=== PATIENT | female | born 1940 | race American Indian/Alaskan Native ===

== ENCOUNTER 2019-07-23 08:02 | Day surgery (SDC) | payer MEDICARE, OTHER ==
[~2019-07-23] VITALS: Ht 167.6 cm; Wt 78.1 kg
[~2019-07-23 08:02] MED LIST: AMIO200T61 PO; CINA30TA PO; CIPR-260 PO; DEXL30CA3 PO; FOLI1TAB16 PO; METO50TA7 PO; SEVE800T8 PO; TRAM50TA2 PO; VIT1TABL76 PO; [UNRECOGNIZED DRUG - OTHER]
[2019-07-23] MEDS ORDERED: normal saline 1000ml 1,000 ML IV PRN (08:40)
[2019-07-23] MEDS ORDERED: COU4T PO (08:46)
[2019-07-23] MEDS ORDERED: COU3T PO (08:46)
[2019-07-23 09:04] LABS: BASOPHILS # (AUTO) 0.1 X10'3 (0-0.2); BASOPHILS % (AUTO) 0.9 % (0-1); EOSINOPHILS # (AUTO) 0.1 X10'3 (0-0.9); EOSINOPHILS % (AUTO) 1.8 % (0-6); HEMATOCRIT 30.8 % (35.0-45.0); HEMOGLOBIN 10.8 g/dl (12.0-16.0); LYMPHOCYTES # (AUTO) 1.3 X10'3 (1.1-4.8); LYMPHOCYTES % (AUTO) 20.5 % (21-51); MEAN CORPUSCULAR HEMOGLOBIN 36.3 PG (27.0-31.0); MEAN CORPUSCULAR HGB CONC 35.1 g/dL (33.0-36.5); MEAN CORPUSCULAR VOLUME 103.4 FL (78-98); MEAN PLATELET VOLUME 7.1 FL (7.4-10.4); MONOCYTES # (AUTO) 0.6 X10'3 (0-0.9); MONOCYTES % (AUTO) 9.8 % (2-12); NEUTROPHILS # (AUTO) 4.1 X10'3 (1.8-7.7); PLATELET COUNT 182 X10'3 (140-440); RED BLOOD COUNT 2.98 X10'6 (4.20-5.60); WHITE BLOOD COUNT 6.1 X10'3 (4.5-11.0)
[2019-07-23 09:18] LABS: ALBUMIN 2.7 G/DL (3.4-5.0); ANION GAP 9 (8-16); BLOOD UREA NITROGEN 52 MG/DL (7-18); BUN/CREATININE RATIO 6.5 (6.6-38.0); CALCIUM 8.2 MG/DL (8.5-10.1); CHLORIDE 104 MMOL/L (99-107); CREATININE 8.01 MG/DL (0.40-0.90); GLUCOSE 110 MG/DL (70-104); POTASSIUM 4.6 MMOL/L (3.5-5.1); SODIUM 138 MMOL/L (135-145); eGFR 5 ML/MIN
[2019-07-23] MEDS ORDERED: DEXL30CA3 PO (09:25)
[2019-07-23] MEDS ORDERED: CINA30TA PO (09:25)
== END 2019-07-23 10:15 | disposition home or self-care (01) ==
LOC: SSTAY O 08:02
PROVIDERS: ATTEND Radiology Diagnostic Radiology
DX: E11.22 Type 2 diabetes mellitus with diabetic chronic kidney disease (principal); Z53.8 Procedure and treatment not carried out for other reasons; I12.0 Hypertensive chronic kidney disease with stage 5 chronic kidney disease or end stage renal disease; N18.6 End stage renal disease; I48.91 Unspecified atrial fibrillation; D64.9 Anemia, unspecified; Z98.41 Cataract extraction status, right eye; Z98.42 Cataract extraction status, left eye; Z85.3 Personal history of malignant neoplasm of breast; Z99.2 Dependence on renal dialysis; Z98.890 Other specified postprocedural states; Z90.49 Acquired absence of other specified parts of digestive tract; Z90.11 Acquired absence of right breast and nipple; Z87.891 Personal history of nicotine dependence; Z88.2 Allergy status to sulfonamides; Z88.5 Allergy status to narcotic agent; Z83.3 Family history of diabetes mellitus
CPT/HCPCS: 36415; 80048; 85025; 85610; J7030

== ENCOUNTER 2020-02-03 09:05 | Outpatient (CLI) | payer MEDICARE, OTHER ==
[~2020-02-03 09:05] MED LIST changes: -AMIO200T61 PO; -CIPR-260 PO; +COU3T PO; +COU4T PO; -TRAM50TA2 PO
== END 2020-02-03 23:59 | disposition home or self-care (01) ==
LOC: RAD 09:05
PROVIDERS: ATTEND Internal Medicine Critical Care Medicine
DX: N18.6 End stage renal disease (principal); R76.11 Nonspecific reaction to tuberculin skin test without active tuberculosis
CPT/HCPCS: 71046

== ENCOUNTER 2020-04-13 09:05 | Day surgery (SDC) | payer MEDICARE, OTHER ==
[2020-04-13] VITALS (7 sets, daily range): BP systolic 114–135; BP diastolic 68–75
[~2020-04-13] VITALS: Ht 167.6 cm; Wt 73.3 kg
[~2020-04-13 09:05] MED LIST changes: +CALC0.2511 PO; -CINA30TA PO; +CLOP75TA33 PO; -COU3T PO; -COU4T PO; -DEXL30CA3 PO; -FOLI1TAB16 PO; +HYDR-4353 PO; +LORA10TA7 PO; +LOSA100T57 PO; +METO25TA6 PO; -METO50TA7 PO; +PIRO20CA PO; +SENN-223 PO; -SEVE800T8 PO; -VIT1TABL76 PO; +WARF-65 PO; -[UNRECOGNIZED DRUG - OTHER]
== END 2020-04-13 11:40 | disposition home or self-care (01) ==
LOC: SSTAY O 09:05
PROVIDERS: ATTEND Radiology Diagnostic Radiology
DX: J90 Pleural effusion, not elsewhere classified (principal); Z95.1 Presence of aortocoronary bypass graft; I24.1 Dressler's syndrome; E11.22 Type 2 diabetes mellitus with diabetic chronic kidney disease; N18.6 End stage renal disease; I48.91 Unspecified atrial fibrillation
CPT/HCPCS: 32555; 36415; 71045; 85610; 87635

== ENCOUNTER 2020-04-21 08:57 | Day surgery (SDC) | payer MEDICARE, OTHER ==
[~2020-04-21] VITALS: Ht 167.6 cm; Wt 72.2 kg
[2020-04-21] MEDS ORDERED: normal saline 1000ml 1,000 ML IV PRN (09:25)
[2020-04-21] MEDS ORDERED: albumin 25% 100mL bottle x 1 IV PRN (09:25)
[2020-04-21 09:30] VITALS: BP 124/65
--- NOTE | 2020-04-21 09:58 | NUR ---
Called LISA Nugent re pt's negative PCR coronavirus result on 04/13/2020. OK to cancel today's order for PCR test.
[2020-04-21 10:50] VITALS: BP 115/72
[2020-04-21 11:00] VITALS: BP 122/56
[2020-04-21 11:06] VITALS: BP 136/59
[2020-04-21 11:15] VITALS: BP 113/67
== END 2020-04-21 11:40 | disposition home or self-care (01) ==
LOC: SSTAY O 08:57
PROVIDERS: ATTEND Radiology Vascular & Interventional Radiology
DX: J91.8 Pleural effusion in other conditions classified elsewhere (principal); I48.91 Unspecified atrial fibrillation; R06.02 Shortness of breath
CPT/HCPCS: 32555; 36415; 71045; 85610

== ENCOUNTER 2020-04-28 08:43 | Day surgery (SDC) | payer MEDICARE, OTHER ==
[~2020-04-28] VITALS: Ht 167.6 cm; Wt 72.5 kg
[2020-04-28 08:47] VITALS: BP 108/63
[2020-04-28 09:27] VITALS: BP 97/53
[2020-04-28 10:15] VITALS: BP 97/53
[2020-04-28 10:20] VITALS: BP 110/65
[2020-04-28 10:30] VITALS: BP 126/62
== END 2020-04-28 10:35 | disposition home or self-care (01) ==
LOC: SSTAY O 08:43
PROVIDERS: ATTEND Radiology Vascular & Interventional Radiology
DX: J90 Pleural effusion, not elsewhere classified (principal); I48.91 Unspecified atrial fibrillation; N18.6 End stage renal disease; Z99.2 Dependence on renal dialysis; Z90.710 Acquired absence of both cervix and uterus; Z90.49 Acquired absence of other specified parts of digestive tract; Z98.890 Other specified postprocedural states; Z72.89 Other problems related to lifestyle; Z88.8 Allergy status to other drugs, medicaments and biological substances; Z88.5 Allergy status to narcotic agent; Z79.01 Long term (current) use of anticoagulants; Z79.899 Other long term (current) drug therapy; Z83.3 Family history of diabetes mellitus; Z80.8 Family history of malignant neoplasm of other organs or systems
CPT/HCPCS: 32555; 36415; 71045; 85610

== ENCOUNTER 2020-05-05 08:58 | Day surgery (SDC) | payer MEDICARE, OTHER ==
[~2020-05-05] VITALS: Ht 167.6 cm; Wt 72.5 kg
[~2020-05-05 08:58] MED LIST changes: -CLOP75TA33 PO; -HYDR-4353 PO; -LORA10TA7 PO; -PIRO20CA PO; -SENN-223 PO
[2020-05-05 09:30] VITALS: BP 106/69
[2020-05-05 10:50] VITALS: BP 106/69
[2020-05-05 11:10] VITALS: BP 128/68
[2020-05-05 11:25] VITALS: BP 137/69
== END 2020-05-05 11:30 | disposition home or self-care (01) ==
LOC: SSTAY O 08:58
PROVIDERS: ATTEND Radiology Vascular & Interventional Radiology
DX: J91.8 Pleural effusion in other conditions classified elsewhere (principal); J90 Pleural effusion, not elsewhere classified; Z95.1 Presence of aortocoronary bypass graft; I48.91 Unspecified atrial fibrillation; R06.02 Shortness of breath; I25.10 Atherosclerotic heart disease of native coronary artery without angina pectoris; N18.6 End stage renal disease; Z99.2 Dependence on renal dialysis
CPT/HCPCS: 32555; 36415; 71045; 85610

== ENCOUNTER 2020-05-12 08:53 | Day surgery (SDC) | payer MEDICARE, OTHER ==
[~2020-05-12] VITALS: Ht 167.6 cm; Wt 72.5 kg
[2020-05-12] MEDS ORDERED: albumin 25% 100mL bottle x 1 IV PRN (09:15)
[2020-05-12 09:33] VITALS: BP 115/52
[2020-05-12 10:45] VITALS: BP 115/59
[2020-05-12 11:00] VITALS: BP 123/60
[2020-05-12 11:34] LABS: ALBUMIN,BODY FLUID 1.5 G/DL; TOTAL PROTEIN,BODY FLUID 3.1 G/DL
[2020-05-12 12:07] LABS: BFAPPEAR CLEAR; BFCOLOR YELLOW
[2020-05-12 12:08] LABS: BF RBC COUNT 345 /CU MM; BF WBC COUNT 630 /CU MM (0-1000); BFVOLUME 57 ML; LYMPHOCYTES,BODY FLUID 82 %; MONOCYTES,BODY FLUID 15 %; NEUTROPHILS,BODY FLUID 3 %; OTHER CELLS,BODY FLUID MACROPHAGES
== END 2020-05-12 11:10 | disposition home or self-care (01) ==
LOC: SSTAY O 08:53
PROVIDERS: ATTEND Radiology Diagnostic Radiology
DX: J90 Pleural effusion, not elsewhere classified (principal); Z20.828 Contact with and (suspected) exposure to other viral communicable diseases; Z88.8 Allergy status to other drugs, medicaments and biological substances; Z88.5 Allergy status to narcotic agent; Z88.1 Allergy status to other antibiotic agents; Z79.899 Other long term (current) drug therapy; Z79.01 Long term (current) use of anticoagulants; Z83.3 Family history of diabetes mellitus
CPT/HCPCS: 32555; 36415; 71045; 82042; 84157; 85610; 87070; 87635; 89051

== ENCOUNTER 2020-05-19 08:47 | Day surgery (SDC) | payer MEDICARE, OTHER ==
[~2020-05-19] VITALS: Ht 167.6 cm; Wt 72.2 kg
[2020-05-19] MEDS ORDERED: albumin 25% 100mL bottle x 1 IV PRN (09:05)
[2020-05-19 09:06] VITALS: BP 119/57
[2020-05-19 10:10] VITALS: BP 119/57
[2020-05-19 10:15] VITALS: BP 119/69
== END 2020-05-19 10:30 | disposition home or self-care (01) ==
LOC: SSTAY O 08:47
PROVIDERS: ATTEND Radiology Vascular & Interventional Radiology
DX: J90 Pleural effusion, not elsewhere classified (principal); I48.91 Unspecified atrial fibrillation; N18.6 End stage renal disease; Z99.2 Dependence on renal dialysis; Z90.49 Acquired absence of other specified parts of digestive tract; Z98.890 Other specified postprocedural states; Z90.710 Acquired absence of both cervix and uterus; Z72.89 Other problems related to lifestyle; Z88.8 Allergy status to other drugs, medicaments and biological substances; Z88.5 Allergy status to narcotic agent; Z95.1 Presence of aortocoronary bypass graft; Z88.1 Allergy status to other antibiotic agents; Z79.899 Other long term (current) drug therapy; Z79.01 Long term (current) use of anticoagulants; Z83.3 Family history of diabetes mellitus; Z80.9 Family history of malignant neoplasm, unspecified
CPT/HCPCS: 32555; 36415; 71045; 85610

== ENCOUNTER 2020-05-26 08:59 | Day surgery (SDC) | payer MEDICARE, OTHER ==
[~2020-05-26] VITALS: Ht 167.6 cm; Wt 72.5 kg
[2020-05-26 09:39] VITALS: BP 115/70
[2020-05-26 10:28] VITALS: BP 115/70
[2020-05-26 10:32] VITALS: BP 135/81
== END 2020-05-26 10:40 | disposition home or self-care (01) ==
LOC: SSTAY O 08:59
PROVIDERS: ATTEND Radiology Diagnostic Radiology
DX: J91.8 Pleural effusion in other conditions classified elsewhere (principal); E11.22 Type 2 diabetes mellitus with diabetic chronic kidney disease; N18.9 Chronic kidney disease, unspecified; R06.02 Shortness of breath; I50.9 Heart failure, unspecified
CPT/HCPCS: 32555; 36415; 71045; 85610

== ENCOUNTER 2020-06-04 09:06 | Day surgery (SDC) | payer MEDICARE, OTHER ==
[~2020-06-04] VITALS: Ht 167.6 cm; Wt 73.4 kg
[2020-06-04 09:29] VITALS: BP 113/72
[2020-06-04] MEDS ORDERED: albumin 25% 100mL bottle x 1 IV PRN (09:35)
[2020-06-04] MEDS ORDERED: SEVE800T8 PO (09:46)
[2020-06-04 10:00] VITALS: BP 126/74
[2020-06-04 10:10] VITALS: BP 130/74
[2020-06-04 10:25] VITALS: BP 124/59
[2020-06-04 10:55] VITALS: BP 115/54
[2020-06-04 11:25] VITALS: BP 135/70
== END 2020-06-04 12:05 | disposition home or self-care (01) ==
LOC: SSTAY O 09:06
PROVIDERS: ATTEND Radiology Diagnostic Radiology
DX: J90 Pleural effusion, not elsewhere classified (principal)
CPT/HCPCS: 32555; 36415; 71045; 85610

== ENCOUNTER 2020-06-11 09:15 | Day surgery (SDC) | payer MEDICARE, OTHER ==
[~2020-06-11] VITALS: Ht 167.6 cm; Wt 71.4 kg
[~2020-06-11 09:15] MED LIST changes: -CALC0.2511 PO; +SEVE800T8 PO
[2020-06-11] MEDS ORDERED: albumin 25% 100mL bottle x 1 IV PRN (09:55)
[2020-06-11 09:56] VITALS: BP 129/87
[2020-06-11 10:51] VITALS: BP 129/87
[2020-06-11 11:00] VITALS: BP 106/69
[2020-06-11 11:15] VITALS: BP 121/83
[2020-06-11 11:30] VITALS: BP 107/72
== END 2020-06-11 11:05 | disposition home or self-care (01) ==
LOC: SSTAY O 09:15
PROVIDERS: ATTEND Radiology Vascular & Interventional Radiology
DX: J90 Pleural effusion, not elsewhere classified (principal); Z88.5 Allergy status to narcotic agent; Z88.8 Allergy status to other drugs, medicaments and biological substances; I24.1 Dressler's syndrome; N18.6 End stage renal disease; I48.91 Unspecified atrial fibrillation; Z79.01 Long term (current) use of anticoagulants; Z95.1 Presence of aortocoronary bypass graft; Z98.890 Other specified postprocedural states; Z90.710 Acquired absence of both cervix and uterus; Z90.49 Acquired absence of other specified parts of digestive tract; Z99.2 Dependence on renal dialysis; Z80.8 Family history of malignant neoplasm of other organs or systems; Z83.3 Family history of diabetes mellitus
CPT/HCPCS: 32555; 36415; 71045; 85610

== ENCOUNTER 2020-06-18 07:56 | Day surgery (SDC) | payer MEDICARE, OTHER ==
[~2020-06-18] VITALS: Ht 167.6 cm; Wt 70.7 kg
[2020-06-18 08:15] VITALS: BP_SYST 100; BP_SYST 103; BP_DIAS 47; BP_DIAS 55
--- NOTE | 2020-06-18 08:27 | NUR ---
Order received from LISA Nugent to perform non-rapid covid test.
[2020-06-18] MEDS ORDERED: albumin 25% 100mL bottle x 1 IV PRN (08:40)
[2020-06-18 09:35] VITALS: BP 127/58
[2020-06-18 09:45] VITALS: BP 110/54
[2020-06-18 10:00] VITALS: BP 101/42
[2020-06-18 10:15] VITALS: BP 95/50
--- NOTE | 2020-06-18 10:19 | NUR ---
CXR reviewed by LISA Nugent. Provider stated pt ok to go, no pneumothorax noted.
== END 2020-06-18 10:20 | disposition home or self-care (01) ==
LOC: SSTAY O 07:56
PROVIDERS: ATTEND Radiology Diagnostic Radiology
DX: J90 Pleural effusion, not elsewhere classified (principal); Z20.828 Contact with and (suspected) exposure to other viral communicable diseases; I48.91 Unspecified atrial fibrillation; N18.6 End stage renal disease; Z99.2 Dependence on renal dialysis; Z90.49 Acquired absence of other specified parts of digestive tract; Z90.710 Acquired absence of both cervix and uterus; Z98.890 Other specified postprocedural states; Z72.89 Other problems related to lifestyle; Z88.8 Allergy status to other drugs, medicaments and biological substances; Z88.5 Allergy status to narcotic agent; Z88.1 Allergy status to other antibiotic agents; Z83.3 Family history of diabetes mellitus; Z80.8 Family history of malignant neoplasm of other organs or systems
CPT/HCPCS: 32555; 36415; 71045; 85610; 87635

== ENCOUNTER 2020-06-25 08:03 | Day surgery (SDC) | payer MEDICARE, OTHER ==
[~2020-06-25] VITALS: Ht 167.6 cm; Wt 70.9 kg
[2020-06-25 08:30] VITALS: BP 103/59
[2020-06-25] MEDS ORDERED: albumin 25% 100mL bottle x 1 IV PRN (08:30)
[2020-06-25 09:35] VITALS: BP 109/78
[2020-06-25 09:45] VITALS: BP 106/45
[2020-06-25 10:00] VITALS: BP 95/66
[2020-06-25 10:15] VITALS: BP 99/54
[2020-06-25 10:30] VITALS: BP 108/66
== END 2020-06-25 10:40 | disposition home or self-care (01) ==
LOC: SSTAY O 08:03
PROVIDERS: ATTEND Radiology Diagnostic Radiology
DX: J90 Pleural effusion, not elsewhere classified (principal); I48.91 Unspecified atrial fibrillation; N18.6 End stage renal disease; Z79.01 Long term (current) use of anticoagulants; Z95.1 Presence of aortocoronary bypass graft; Z99.2 Dependence on renal dialysis; Z90.49 Acquired absence of other specified parts of digestive tract; Z90.710 Acquired absence of both cervix and uterus; Z88.1 Allergy status to other antibiotic agents; Z88.8 Allergy status to other drugs, medicaments and biological substances; Z88.5 Allergy status to narcotic agent; Z79.899 Other long term (current) drug therapy; Z72.89 Other problems related to lifestyle; Z83.3 Family history of diabetes mellitus; Z80.8 Family history of malignant neoplasm of other organs or systems
CPT/HCPCS: 32555; 36415; 71045; 85610

== ENCOUNTER 2020-07-02 08:08 | Day surgery (SDC) | payer MEDICARE, OTHER ==
[~2020-07-02] VITALS: Ht 167.6 cm; Wt 69.9 kg
[2020-07-02 08:30] VITALS: BP 104/52
[2020-07-02] MEDS ORDERED: albumin 25% 100mL bottle x 1 IV PRN (08:35)
[2020-07-02 09:08] VITALS: BP 104/52
[2020-07-02 09:45] VITALS: BP 111/66
[2020-07-02 10:00] VITALS: BP 106/63
[2020-07-02 10:15] VITALS: BP 93/52
== END 2020-07-02 10:40 | disposition home or self-care (01) ==
LOC: SSTAY O 08:08
PROVIDERS: ATTEND Radiology Vascular & Interventional Radiology
DX: J90 Pleural effusion, not elsewhere classified (principal); I48.91 Unspecified atrial fibrillation; N18.6 End stage renal disease; Z99.2 Dependence on renal dialysis; Z95.1 Presence of aortocoronary bypass graft; Z79.01 Long term (current) use of anticoagulants; Z98.890 Other specified postprocedural states; Z90.710 Acquired absence of both cervix and uterus; Z90.49 Acquired absence of other specified parts of digestive tract; Z88.8 Allergy status to other drugs, medicaments and biological substances; Z88.5 Allergy status to narcotic agent; Z88.1 Allergy status to other antibiotic agents; Z79.899 Other long term (current) drug therapy; Z72.89 Other problems related to lifestyle; Z83.3 Family history of diabetes mellitus; Z80.9 Family history of malignant neoplasm, unspecified
CPT/HCPCS: 32555; 36415; 71045; 85610

== ENCOUNTER 2020-07-08 08:50 | Day surgery (SDC) | payer MEDICARE, OTHER ==
[~2020-07-08] VITALS: Ht 167.6 cm; Wt 72.0 kg
[2020-07-08 09:00] VITALS: BP 115/33
[2020-07-08 09:50] VITALS: BP 115/33
[2020-07-08 10:00] VITALS: BP 116/42
[2020-07-08 10:15] VITALS: BP 109/62
[2020-07-08 11:00] VITALS: BP 110/57
== END 2020-07-08 11:00 | disposition home or self-care (01) ==
LOC: SSTAY O 08:50
PROVIDERS: ATTEND Radiology Diagnostic Radiology
DX: J90 Pleural effusion, not elsewhere classified (principal); I48.91 Unspecified atrial fibrillation; N18.6 End stage renal disease; Z90.49 Acquired absence of other specified parts of digestive tract; Z95.1 Presence of aortocoronary bypass graft; Z98.890 Other specified postprocedural states; Z90.710 Acquired absence of both cervix and uterus; Z72.89 Other problems related to lifestyle; Z88.5 Allergy status to narcotic agent; Z88.8 Allergy status to other drugs, medicaments and biological substances; Z79.899 Other long term (current) drug therapy; Z79.01 Long term (current) use of anticoagulants; Z83.3 Family history of diabetes mellitus
CPT/HCPCS: 32555; 36415; 71045; 85610

== ENCOUNTER 2020-07-16 08:48 | Day surgery (SDC) | payer MEDICARE, OTHER ==
[~2020-07-16] VITALS: Ht 165.1 cm; Wt 70.6 kg
[2020-07-16] MEDS ORDERED: albumin 25% 100mL bottle x 1 IV PRN (09:15)
[2020-07-16 10:00] VITALS: BP 95/60
[2020-07-16 10:30] VITALS: BP 95/60
[2020-07-16 10:35] VITALS: BP 95/60
[2020-07-16 10:40] VITALS: BP 95/40
[2020-07-16 10:55] VITALS: BP 96/43
[2020-07-16] MEDS ORDERED: WARF3TAB56 PO (15:44)
[2020-07-16] MEDS ORDERED: CINA30TA PO (15:45)
== END 2020-07-16 11:05 | disposition home or self-care (01) ==
LOC: SSTAY O 08:48
PROVIDERS: ATTEND Radiology Vascular & Interventional Radiology
DX: J90 Pleural effusion, not elsewhere classified (principal); I48.91 Unspecified atrial fibrillation; N18.6 End stage renal disease; Z99.2 Dependence on renal dialysis; Z79.01 Long term (current) use of anticoagulants; Z90.49 Acquired absence of other specified parts of digestive tract; Z98.890 Other specified postprocedural states; Z90.710 Acquired absence of both cervix and uterus; Z72.89 Other problems related to lifestyle; Z88.8 Allergy status to other drugs, medicaments and biological substances; Z88.5 Allergy status to narcotic agent; Z79.899 Other long term (current) drug therapy; Z83.3 Family history of diabetes mellitus; Z80.8 Family history of malignant neoplasm of other organs or systems
CPT/HCPCS: 32555; 36415; 71045; 85610

== ENCOUNTER 2020-08-13 10:48 | Day surgery (SDC) | payer MEDICARE, OTHER ==
[2020-08-13] VITALS (7 sets, daily range): BP systolic 124–141; BP diastolic 59–70
[~2020-08-13] VITALS: Ht 167.6 cm; Wt 72.1 kg
[~2020-08-13 10:48] MED LIST changes: +CINA30TA PO; +CLOP75TA15 PO; +DOCU100C40 PO; -LOSA100T57 PO; -METO25TA6 PO; +MIDO5TAB4 PO; +WARF3TAB56 PO; +metoprolol tartrate tablet PO
[2020-08-13] MEDS ORDERED: normal saline 1000ml 1,000 ML IV SCH (11:20)
[2020-08-13] MEDS ORDERED: CLOP75TA15 PO (12:08)
[2020-08-13] MEDS ORDERED: DOCU-148 PO (12:09)
[2020-08-13] MEDS ORDERED: MIDO2.5T14 PO (12:11)
[2020-08-13] MEDS ORDERED: METOPROLOL TARTRATE (12:16)
[2020-08-13 12:21] LABS: ALBUMIN 2.9 G/DL (3.4-5.0); ANION GAP 8 (8-16); BLOOD UREA NITROGEN 17 MG/DL (7-18); BUN/CREATININE RATIO 3.9 (6.6-38.0); CALCIUM 8.5 MG/DL (8.5-10.1); CHLORIDE 104 MMOL/L (99-107); CREATININE 4.35 MG/DL (0.40-0.90); GLUCOSE 224 MG/DL (70-104); POTASSIUM 4.2 MMOL/L (3.5-5.1); SODIUM 144 MMOL/L (135-145); TOTAL CARBON DIOXIDE 32.5 MMOL/L (24-32); eGFR 10 ML/MIN
[2020-08-13 12:27] LABS: BASOPHILS # (AUTO) 0.1 X10'3 (0-0.2); BASOPHILS % (AUTO) 1.2 % (0-1); EOSINOPHILS % (AUTO) 0.8 % (0-6); HEMATOCRIT 31.4 % (35.0-45.0); HEMOGLOBIN 10.4 g/dl (12.0-16.0); LYMPHOCYTES # (AUTO) 0.9 X10'3 (1.1-4.8); LYMPHOCYTES % (AUTO) 15.4 % (21-51); MEAN CORPUSCULAR HEMOGLOBIN 34.2 PG (27.0-31.0); MEAN CORPUSCULAR HGB CONC 33.1 g/dL (33.0-36.5); MEAN CORPUSCULAR VOLUME 103.5 FL (78-98); MEAN PLATELET VOLUME 7.7 FL (7.4-10.4); MONOCYTES # (AUTO) 0.7 X10'3 (0-0.9); MONOCYTES % (AUTO) 11.5 % (2-12); NEUTROPHILS # (AUTO) 4.1 X10'3 (1.8-7.7); NEUTROPHILS % (AUTO) 71.1 % (42-75); PLATELET COUNT 205 X10'3 (140-440); RED BLOOD COUNT 3.04 X10'6 (4.20-5.60); RED CELL DISTRIBUTION WIDTH 15.7 % (11.5-14.5); WHITE BLOOD COUNT 5.8 X10'3 (4.5-11.0)
[2020-08-13] MEDS ORDERED: midazolam 2 mg/2 ml injection ONE (12:45)
[2020-08-13] MEDS ORDERED: LIDOcaine 1%/PF 5ML 10 MG/ML VIAL ONE (12:45)
[2020-08-13] MEDS ORDERED: fentaNYL/PF 50MCG/1 ML 2ML syringe ONE ×2 (12:46→13:56)
[2020-08-13] MEDS ORDERED: heparin 1,000 UNITS/NS 500ml 500 ML ONE (12:46)
[2020-08-13] MEDS ORDERED: iohexol 300mg/ml 100ml inj. ONE (12:46)
[2020-08-13] MEDS ORDERED: diphenhydrAMINE 50 mg/ml inj ONE (13:34)
== END 2020-08-13 16:00 | disposition home or self-care (01) ==
LOC: SSTAY O 10:48
PROVIDERS: ATTEND Radiology Diagnostic Radiology
DX: T82.858A Stenosis of other vascular prosthetic devices, implants and grafts, initial encounter (principal); I25.10 Atherosclerotic heart disease of native coronary artery without angina pectoris; E11.22 Type 2 diabetes mellitus with diabetic chronic kidney disease; I12.9 Hypertensive chronic kidney disease with stage 1 through stage 4 chronic kidney disease, or unspecified chronic kidney disease; N18.9 Chronic kidney disease, unspecified; I48.20 Chronic atrial fibrillation, unspecified; E21.3 Hyperparathyroidism, unspecified; Z79.01 Long term (current) use of anticoagulants; Z88.5 Allergy status to narcotic agent; Z88.1 Allergy status to other antibiotic agents; Z88.8 Allergy status to other drugs, medicaments and biological substances; Z79.899 Other long term (current) drug therapy; Z20.828 Contact with and (suspected) exposure to other viral communicable diseases; Y83.2 Surgical operation with anastomosis, bypass or graft as the cause of abnormal reaction of the patient, or of later complication, without mention of misadventure at the time of the procedure; Y92.89 Other specified places as the place of occurrence of the external cause
CPT/HCPCS: 36415; 36902; 80048; 85025; 85610; 87635; 99152; 99153; C1725; C1769; C1894; C9803; J1200; J1644; J2250; J3010; J7030; Q9967

== ENCOUNTER 2020-08-16 11:13 | Emergency (ER) | payer MEDICARE, OTHER ==
[~2020-08-16] VITALS: Ht 167.6 cm; Wt 71.4 kg
[~2020-08-16 11:13] MED LIST changes: +DOCU-148 PO; +METOPROLOL TARTRATE; +MIDO2.5T14 PO
[2020-08-16 12:22] LABS: BASOPHILS # (AUTO) 0.1 X10'3 (0-0.2); EOSINOPHILS % (AUTO) 0.9 % (0-6); HEMATOCRIT 29.8 % (35.0-45.0); HEMOGLOBIN 9.9 g/dl (12.0-16.0); LYMPHOCYTES # (AUTO) 0.6 X10'3 (1.1-4.8); LYMPHOCYTES % (AUTO) 10.3 % (21-51); MEAN CORPUSCULAR HEMOGLOBIN 34.4 PG (27.0-31.0); MEAN CORPUSCULAR HGB CONC 33.2 g/dL (33.0-36.5); MEAN CORPUSCULAR VOLUME 103.7 FL (78-98); MEAN PLATELET VOLUME 7.9 FL (7.4-10.4); MONOCYTES # (AUTO) 0.5 X10'3 (0-0.9); MONOCYTES % (AUTO) 8.1 % (2-12); NEUTROPHILS # (AUTO) 4.6 X10'3 (1.8-7.7); NEUTROPHILS % (AUTO) 79.7 % (42-75); PLATELET COUNT 185 X10'3 (140-440); RED BLOOD COUNT 2.88 X10'6 (4.20-5.60); RED CELL DISTRIBUTION WIDTH 15.2 % (11.5-14.5); WHITE BLOOD COUNT 5.7 X10'3 (4.5-11.0)
[2020-08-16 12:34] LABS: ALANINE AMINOTRANSFERASE 14 U/L (12-78); ALBUMIN 2.7 G/DL (3.4-5.0); ALBUMIN/GLOBULIN RATIO 0.7 (1.1-1.5); ALKALINE PHOSPHATASE 191 IU/L (46-116); ANION GAP 5 (8-16); ASPARTATE AMINO TRANSFERASE 12 U/L (10-37); BILIRUBIN,TOTAL 0.7 MG/DL (0.1-1.0); BLOOD UREA NITROGEN 40 MG/DL (7-18); BUN/CREATININE RATIO 7.9 (6.6-38.0); CALCIUM 8.4 MG/DL (8.5-10.1); CHLORIDE 101 MMOL/L (99-107); CREATININE 5.04 MG/DL (0.40-0.90); GLUCOSE 289 MG/DL (70-104); POTASSIUM 3.9 MMOL/L (3.5-5.1); SODIUM 137 MMOL/L (135-145); TOTAL CARBON DIOXIDE 31.3 MMOL/L (24-32); TOTAL PROTEIN 6.7 G/DL (6.4-8.2); eGFR 8 ML/MIN
--- NOTE | 2020-08-16 15:49 | NUR ---
DURING THORACENTESIS PAIN SHOT UP LEFT ARM AND AT THAT POINT LISA PADILLA DISCONTINUE THORACENTESIS. 800CC FLUID REMOVED. PT STATES, THIS PAIN HAS HAPPENED BEFORE WHEN TWYLA HAD A THORACENTESIS
[2020-08-16 16:39] VITALS: BP 138/58
--- NOTE | 2020-08-16 16:40 | NUR ---
PT STATES, " I FEEL GOOD, NO SOB"
== END 2020-08-16 16:55 | disposition home or self-care (01) ==
LOC: ER 11:15
DX: I48.91 Unspecified atrial fibrillation (principal); J90 Pleural effusion, not elsewhere classified; R06.02 Shortness of breath; N18.6 End stage renal disease; I11.0 Hypertensive heart disease with heart failure; I50.9 Heart failure, unspecified; E11.9 Type 2 diabetes mellitus without complications; Z85.3 Personal history of malignant neoplasm of breast; Z90.49 Acquired absence of other specified parts of digestive tract; Z90.710 Acquired absence of both cervix and uterus; Z98.890 Other specified postprocedural states; Z88.1 Allergy status to other antibiotic agents; Z88.5 Allergy status to narcotic agent; Z88.8 Allergy status to other drugs, medicaments and biological substances; Z79.899 Other long term (current) drug therapy
CPT/HCPCS: 32555; 36415; 71045; 80053; 83880; 84484; 85025; 93005; 99285

== ENCOUNTER 2020-08-22 06:31 | Emergency (ER) | payer MEDICARE, OTHER ==
[~2020-08-22] VITALS: Ht 167.6 cm; Wt 72.7 kg
[2020-08-22 07:49] LABS: BASOPHILS # (AUTO) 0.1 X10'3 (0-0.2); BASOPHILS % (AUTO) 1.2 % (0-1); EOSINOPHILS # (AUTO) 0.1 X10'3 (0-0.9); EOSINOPHILS % (AUTO) 1.7 % (0-6); HEMATOCRIT 30.5 % (35.0-45.0); HEMOGLOBIN 10.3 g/dl (12.0-16.0); LYMPHOCYTES # (AUTO) 0.9 X10'3 (1.1-4.8); LYMPHOCYTES % (AUTO) 18.1 % (21-51); MEAN CORPUSCULAR HEMOGLOBIN 35.4 PG (27.0-31.0); MEAN CORPUSCULAR HGB CONC 33.8 g/dL (33.0-36.5); MEAN CORPUSCULAR VOLUME 104.7 FL (78-98); MEAN PLATELET VOLUME 7.9 FL (7.4-10.4); MONOCYTES # (AUTO) 0.6 X10'3 (0-0.9); MONOCYTES % (AUTO) 12.4 % (2-12); NEUTROPHILS # (AUTO) 3.2 X10'3 (1.8-7.7); NEUTROPHILS % (AUTO) 66.6 % (42-75); PLATELET COUNT 248 X10'3 (140-440); RED BLOOD COUNT 2.91 X10'6 (4.20-5.60); RED CELL DISTRIBUTION WIDTH 15.4 % (11.5-14.5); WHITE BLOOD COUNT 4.8 X10'3 (4.5-11.0)
[2020-08-22 07:59] LABS: ALANINE AMINOTRANSFERASE 13 U/L (12-78); ALBUMIN 2.8 G/DL (3.4-5.0); ALBUMIN/GLOBULIN RATIO 0.7 (1.1-1.5); ALKALINE PHOSPHATASE 178 IU/L (46-116); ANION GAP 10 (8-16); ASPARTATE AMINO TRANSFERASE 12 U/L (10-37); BILIRUBIN,TOTAL 0.6 MG/DL (0.1-1.0); BLOOD UREA NITROGEN 29 MG/DL (7-18); BUN/CREATININE RATIO 4.9 (6.6-38.0); CALCIUM 8.4 MG/DL (8.5-10.1); CHLORIDE 102 MMOL/L (99-107); CREATININE 5.94 MG/DL (0.40-0.90); GLUCOSE 194 MG/DL (70-104); POTASSIUM 3.8 MMOL/L (3.5-5.1); SODIUM 142 MMOL/L (135-145); TOTAL CARBON DIOXIDE 29.8 MMOL/L (24-32); TOTAL PROTEIN 6.9 G/DL (6.4-8.2); eGFR 7 ML/MIN
--- NOTE | 2020-08-22 09:30 | NUR ---
Pt tolerated thoracentisis well with 800ml drained. [facility] aware.
--- NOTE | 2020-08-22 09:39 | NUR ---
pER CASE MANAGEMENT, "tHIS IS NOTHING WE CAN DO" TO DECREASE ER USAGE. EDMD MARISELA INFORMED.
[2020-08-22 10:07] VITALS: BP 129/64
== END 2020-08-22 10:59 | disposition home or self-care (01) ==
LOC: ER 06:31
DX: J90 Pleural effusion, not elsewhere classified (principal); I48.91 Unspecified atrial fibrillation; I11.0 Hypertensive heart disease with heart failure; I50.9 Heart failure, unspecified; N18.9 Chronic kidney disease, unspecified; I12.9 Hypertensive chronic kidney disease with stage 1 through stage 4 chronic kidney disease, or unspecified chronic kidney disease; E11.22 Type 2 diabetes mellitus with diabetic chronic kidney disease; Z85.3 Personal history of malignant neoplasm of breast; Z98.890 Other specified postprocedural states; Z90.49 Acquired absence of other specified parts of digestive tract; Z90.710 Acquired absence of both cervix and uterus; Z99.2 Dependence on renal dialysis; Z88.1 Allergy status to other antibiotic agents; Z88.6 Allergy status to analgesic agent; Z88.8 Allergy status to other drugs, medicaments and biological substances; Z70.1 Counseling related to patient's sexual behavior and orientation; Z79.899 Other long term (current) drug therapy
CPT/HCPCS: 32555; 36415; 71045; 80053; 83880; 85025; 85610; 93005; 99285

== ENCOUNTER 2020-08-27 08:55 | Day surgery (SDC) | payer MEDICARE, OTHER ==
[~2020-08-27] VITALS: Ht 167.6 cm; Wt 71.4 kg
[2020-08-27 09:30] VITALS: BP 117/63
[2020-08-27] MEDS ORDERED: CLOP75TA15 PO (09:30)
[2020-08-27] MEDS ORDERED: METO25PO2 PO (09:36)
[2020-08-27] MEDS ORDERED: METO25TA6 PO (09:38)
[2020-08-27] MEDS ORDERED: albumin 25% 100mL bottle x 1 IV PRN (09:40)
[2020-08-27 10:29] VITALS: BP 109/63
[2020-08-27 10:35] VITALS: BP 107/53
[2020-08-27 10:45] VITALS: BP 103/56
[2020-08-27 11:00] VITALS: BP 107/53
[2020-08-27 11:15] VITALS: BP 116/63
== END 2020-08-27 11:35 | disposition home or self-care (01) ==
LOC: SSTAY O 08:55
PROVIDERS: ATTEND Radiology Diagnostic Radiology
DX: J90 Pleural effusion, not elsewhere classified (principal); I48.91 Unspecified atrial fibrillation; I24.1 Dressler's syndrome; N18.6 End stage renal disease; Z79.01 Long term (current) use of anticoagulants; Z95.1 Presence of aortocoronary bypass graft; Z99.2 Dependence on renal dialysis; Z98.890 Other specified postprocedural states; Z90.49 Acquired absence of other specified parts of digestive tract; Z90.710 Acquired absence of both cervix and uterus; Z72.89 Other problems related to lifestyle; Z88.5 Allergy status to narcotic agent; Z88.8 Allergy status to other drugs, medicaments and biological substances; Z79.899 Other long term (current) drug therapy; Z83.3 Family history of diabetes mellitus; Z80.8 Family history of malignant neoplasm of other organs or systems
CPT/HCPCS: 32555; 36415; 71045; 85610

== ENCOUNTER 2020-09-02 19:02 | Emergency (ER) | payer MEDICARE, OTHER ==
[~2020-09-02] VITALS: Ht 167.6 cm; Wt 70.9 kg
[~2020-09-02 19:02] MED LIST changes: -DOCU100C40 PO; +METO25TA6 PO; -METOPROLOL TARTRATE; -MIDO5TAB4 PO; -metoprolol tartrate tablet PO
[2020-09-02 19:41] LABS: BASOPHILS # (AUTO) 0.1 X10'3 (0-0.2); BASOPHILS % (AUTO) 1.3 % (0-1); EOSINOPHILS % (AUTO) 0.4 % (0-6); HEMATOCRIT 31.3 % (35.0-45.0); HEMOGLOBIN 10.4 g/dl (12.0-16.0); LYMPHOCYTES # (AUTO) 0.9 X10'3 (1.1-4.8); LYMPHOCYTES % (AUTO) 10.7 % (21-51); MEAN CORPUSCULAR HEMOGLOBIN 34.4 PG (27.0-31.0); MEAN CORPUSCULAR HGB CONC 33.1 g/dL (33.0-36.5); MEAN PLATELET VOLUME 7.9 FL (7.4-10.4); MONOCYTES # (AUTO) 0.9 X10'3 (0-0.9); MONOCYTES % (AUTO) 10.2 % (2-12); NEUTROPHILS # (AUTO) 6.4 X10'3 (1.8-7.7); NEUTROPHILS % (AUTO) 77.4 % (42-75); PLATELET COUNT 251 X10'3 (140-440); RED BLOOD COUNT 3.01 X10'6 (4.20-5.60); WHITE BLOOD COUNT 8.3 X10'3 (4.5-11.0)
--- NOTE | 2020-09-02 19:42 | NUR ---
MD MEDINA BEDSIDE.
[2020-09-02 19:54] LABS: ALANINE AMINOTRANSFERASE 13 U/L (12-78); ALBUMIN 2.5 G/DL (3.4-5.0); ALBUMIN/GLOBULIN RATIO 0.6 (1.1-1.5); ALKALINE PHOSPHATASE 130 IU/L (46-116); ANION GAP 6 (8-16); ASPARTATE AMINO TRANSFERASE 20 U/L (10-37); BILIRUBIN,TOTAL 0.6 MG/DL (0.1-1.0); BLOOD UREA NITROGEN 15 MG/DL (7-18); BUN/CREATININE RATIO 4.9 (6.6-38.0); CALCIUM 8.6 MG/DL (8.5-10.1); CHLORIDE 103 MMOL/L (99-107); CREATININE 3.06 MG/DL (0.40-0.90); GLUCOSE 210 MG/DL (70-104); SODIUM 141 MMOL/L (135-145); TOTAL CARBON DIOXIDE 32.2 MMOL/L (24-32); TOTAL PROTEIN 6.7 G/DL (6.4-8.2); eGFR 15 ML/MIN
[2020-09-02 20:01] LABS: POTASSIUM 4.4 MMOL/L (3.5-5.1)
[2020-09-02 20:44] VITALS: BP 104/56
== END 2020-09-02 20:30 | disposition home or self-care (01) ==
LOC: ER 19:03
DX: J90 Pleural effusion, not elsewhere classified (principal); I48.91 Unspecified atrial fibrillation; I13.0 Hypertensive heart and chronic kidney disease with heart failure and stage 1 through stage 4 chronic kidney disease, or unspecified chronic kidney disease; I50.9 Heart failure, unspecified; N18.6 End stage renal disease; E11.22 Type 2 diabetes mellitus with diabetic chronic kidney disease; Z85.3 Personal history of malignant neoplasm of breast; Z90.710 Acquired absence of both cervix and uterus; Z79.01 Long term (current) use of anticoagulants; Z99.2 Dependence on renal dialysis; Z88.1 Allergy status to other antibiotic agents; Z88.6 Allergy status to analgesic agent; Z88.8 Allergy status to other drugs, medicaments and biological substances; Z79.899 Other long term (current) drug therapy
CPT/HCPCS: 36415; 71045; 80053; 83880; 84484; 85025; 85610; 93005; 99285

== ENCOUNTER 2020-09-03 08:55 | Day surgery (SDC) | payer MEDICARE, OTHER ==
[~2020-09-03] VITALS: Ht 167.6 cm; Wt 72.2 kg
[2020-09-03] MEDS ORDERED: albumin 25% 100mL bottle x 1 IV PRN (09:20)
[2020-09-03 09:45] VITALS: BP 96/68
[2020-09-03 10:15] VITALS: BP 124/68
--- NOTE | 2020-09-03 11:05 | NUR ---
Called Dr. Peña to read CXR. stated pt was ok for discharge.
[2020-09-03 11:10] VITALS: BP 106/56
== END 2020-09-03 11:10 | disposition home or self-care (01) ==
LOC: SSTAY O 08:55
PROVIDERS: ATTEND Radiology Vascular & Interventional Radiology
DX: J90 Pleural effusion, not elsewhere classified (principal); I48.91 Unspecified atrial fibrillation; N18.6 End stage renal disease; Z99.2 Dependence on renal dialysis; Z90.49 Acquired absence of other specified parts of digestive tract; Z90.710 Acquired absence of both cervix and uterus; Z98.890 Other specified postprocedural states; Z72.89 Other problems related to lifestyle; Z88.5 Allergy status to narcotic agent; Z88.8 Allergy status to other drugs, medicaments and biological substances; Z88.1 Allergy status to other antibiotic agents; Z83.3 Family history of diabetes mellitus
CPT/HCPCS: 32555; 36415; 71045; 85610

== ENCOUNTER 2020-09-10 08:09 | Day surgery (SDC) | payer MEDICARE, OTHER ==
[~2020-09-10] VITALS: Ht 167.6 cm; Wt 71.2 kg
[2020-09-10 08:43] VITALS: BP 109/54
[2020-09-10 10:00] VITALS: BP 115/76
[2020-09-10 10:10] VITALS: BP 125/57
[2020-09-10 10:25] VITALS: BP 102/58
[2020-09-10 11:04] VITALS: BP 126/60
== END 2020-09-10 11:15 | disposition home or self-care (01) ==
LOC: SSTAY O 08:09
PROVIDERS: ATTEND Radiology Vascular & Interventional Radiology
DX: J90 Pleural effusion, not elsewhere classified (principal); I48.91 Unspecified atrial fibrillation; N18.6 End stage renal disease; Z99.2 Dependence on renal dialysis; Z90.49 Acquired absence of other specified parts of digestive tract; Z90.710 Acquired absence of both cervix and uterus; Z98.890 Other specified postprocedural states; Z88.8 Allergy status to other drugs, medicaments and biological substances; Z88.5 Allergy status to narcotic agent; Z79.899 Other long term (current) drug therapy; Z79.01 Long term (current) use of anticoagulants; Z72.89 Other problems related to lifestyle; Z80.9 Family history of malignant neoplasm, unspecified; Z83.3 Family history of diabetes mellitus
CPT/HCPCS: 32555; 36415; 71045; 85610

== ENCOUNTER 2020-09-17 08:10 | Day surgery (SDC) | payer MEDICARE, OTHER ==
[~2020-09-17] VITALS: Ht 167.6 cm; Wt 70.1 kg
[2020-09-17 08:35] VITALS: BP 118/50
[2020-09-17 09:50] VITALS: BP 121/53
[2020-09-17 10:00] VITALS: BP 127/66
[2020-09-17 10:05] VITALS: BP 100/55
[2020-09-17 10:15] VITALS: BP 103/72
== END 2020-09-17 10:30 | disposition home or self-care (01) ==
LOC: SSTAY O 08:10
PROVIDERS: ATTEND Radiology Diagnostic Radiology
DX: J90 Pleural effusion, not elsewhere classified (principal); I48.91 Unspecified atrial fibrillation; E11.22 Type 2 diabetes mellitus with diabetic chronic kidney disease; N18.6 End stage renal disease; Z88.6 Allergy status to analgesic agent; Z88.8 Allergy status to other drugs, medicaments and biological substances; Z82.49 Family history of ischemic heart disease and other diseases of the circulatory system; Z95.1 Presence of aortocoronary bypass graft; Z90.710 Acquired absence of both cervix and uterus; Z90.49 Acquired absence of other specified parts of digestive tract; Z98.890 Other specified postprocedural states; Z79.899 Other long term (current) drug therapy
CPT/HCPCS: 32555; 36415; 71045; 85610